=== PATIENT | male | born 1955 | race Two or more races ===

== ENCOUNTER 2023-05-31 19:56 | Inpatient (IN) | payer OTHER ==
[~2023-05-31] VITALS: Ht 188 cm; Wt 77.7 kg
[~2023-05-31 19:56] MED LIST: ATOR40TA PO; FERR325T23 PO; FINA5TAB11 PO; MECO10005 PO; METO25TA20 PO; OMEP40CA21 PO; TAMS-12 PO
[2023-05-31] MEDS ORDERED: IV NS 0.9% 500 ML BAG IV ONE (20:30)
[2023-05-31 20:46] LABS: BASOPHILS # (AUTO) 0.1 K/uL (0.0-0.2); BASOPHILS % (AUTO) 1.7 % (0.0-2.0); EOSINOPHILS % (AUTO) 0.6 % (0.0-6.0); HEMATOCRIT 24 % (39-51); HEMOGLOBIN 7.5 g/dL (13.5-17.5); LYMPHOCYTES # (AUTO) 0.6 K/uL (0.8-4.8); LYMPHOCYTES % (AUTO) 14.5 % (20.0-44.0); MEAN CORPUSCULAR HEMOGLOBIN 26 PG (26.0-33.0); MEAN CORPUSCULAR HGB CONC 31 g/dl (31.0-36.0); MEAN CORPUSCULAR VOLUME 83 fL (80-96); MONOCYTES # (AUTO) 0.5 K/uL (0.1-1.30); MONOCYTES % (AUTO) 12.1 % (2.0-12.0); NEUTROPHILS # (AUTO) 3.1 K/uL (1.8-8.9); NEUTROPHILS % (AUTO) 71.1 % (43.0-81.0); PLATELET COUNT (AUTO) 212 K/uL (150-450); RED BLOOD CELL COUNT(AUTO) 2.89 MIL/uL (4.5-6.0); RED CELL DISTRIBUTION WIDTH 19.3 % (11.5-15.0); WHITE BLOOD COUNT (AUTO) 4.4 K/uL (4.3-11.0)
[2023-05-31 20:52] LABS: CALCIUM, SERUM 8.2 mg/dL (8.5-10.1); CARBON DIOXIDE 25 mmol/L (21-32); CHLORIDE 99 mmol/L (98-107); CREATININE 0.5 mg/dL (0.6-1.3); GLUCOSE 90 mg/dL (74-106); POTASSIUM 3.6 mmol/L (3.5-5.1); SODIUM SERUM 132 mmol/L (136-145); UREA NITROGEN, BLOOD 6 mg/dL (7-18)
[2023-05-31 20:58] LABS: ALANINE AMINOTRANSFERASE < 6 U/L (12-78); ALKALINE PHOSPHATASE 115 U/L (46-116); ASPARTATE AMINOTRANSFERASE 10 U/L (15-37); BILIRUBIN,DIRECT 0.2 mg/dL (0.0-0.2); BILIRUBIN,TOTAL 0.6 mg/dL (0.2-1.0); TOTAL PROTEIN, SERUM 6.2 g/dL (6.4-8.2)
[2023-05-31 21:41] LABS: LYMPHOCYTES % (MANUAL) 12 % (16-48); MONOCYTES % (MANUAL) 19 % (0-11.0); NEUTROPHILS % (MANUAL) 69 (42-76)
[2023-05-31 21:42] LABS: OVALOCYTES 1+
[2023-05-31 22:30] VITALS: BP 105/64; TEMP 98.1; O2SAT 98
[2023-05-31] MEDS ORDERED: ZOLPIDEM TARTRATE 5 MG TABLET PO PRN (23:00)
[2023-05-31] MEDS ORDERED: IV NS 0.9% 1,000 ML IV SCH (23:00)
[2023-05-31] MEDS ORDERED: ONDANSETRON HCL/PF 4 MG/2 ML VIAL IVP PRN (23:00)
[2023-05-31] MEDS ORDERED: Z GUARD REMEDY 4 OZ OINT TP PRN (23:00)
[2023-05-31] MEDS ORDERED: ACETAMINOPHEN 325 MG TABLET PO PRN (23:00)
[2023-05-31] MEDS ORDERED: MAGNESIUM HYDROXIDE 30 ML UDC PO PRN (23:00)
[2023-05-31] MEDS ORDERED: MAG HYDROX/AL HYDROX/SIMETH 30 ML UDC PO PRN (23:00)
[2023-05-31] MEDS ORDERED: DEXTROSE 50%-WATER 50 ML DISP.SYRIN IV PRN (23:30)
[2023-06-01] VITALS (8 sets, daily range): BP systolic 116–128; BP diastolic 68–75; TEMP 96.6–99.1; O2SAT 96–100
[2023-06-01] MEDS ORDERED: GLIP5TAB13 PO (01:20)
[2023-06-01] MEDS ORDERED: NYST30CR3 TP (01:20)
[2023-06-01] MEDS ORDERED: INSU100V3 SQ (01:20)
[2023-06-01] MEDS ORDERED: OXYC-133 PO ×2 (01:20→07:57)
[2023-06-01] MEDS ORDERED: CALC-1239 PO (01:20)
[2023-06-01] MEDS ORDERED: HYDR-3972 PO (01:20)
[2023-06-01] MEDS ORDERED: LEVE500T9 PO (01:20)
[2023-06-01] MEDS ORDERED: METF-442 PO (01:20)
[2023-06-01] MEDS ORDERED: AMIN30LI27 PO (01:28)
[2023-06-01] MEDS ORDERED: EPOE1000 SQ (01:28)
[2023-06-01] MEDS ORDERED: CARB-36 PO (01:28)
[2023-06-01 04:42] LABS: APPEARANCE,URINE CLEAR (CLEAR); BILIRUBIN,URINE 1+ (NEGATIVE); BLOOD, URINE NEGATIVE Ery/uL (NEGATIVE); COLOR,URINE YELLOW (YELLOW); KETONES,URINE TRACE mg/dL (NEGATIVE); LEUKOCYTE ESTERASE ,URINE NEGATIVE (NEGATIVE); NITRITE, URINE NEGATIVE (NEGATIVE); PROTEIN,URINE TRACE mg/dl (NEGATIVE); UGLUCOSE TRACE mg/dL (NEGATIVE); UROBILINOGEN,URINE >=8.0 EU/dL (0.2)
[2023-06-01 05:14] LABS: ADD URINE CULTURE NO; BACTERIA,URINE None seen /HPF (None Seen); CALCIUM OXALATE CRYSTALS,UR Rare /HPF (None Seen); RBC,URINE 0-2 /HPF (0-2); SQUAMOUS EPITHELIAL CELL,UR Rare /HPF (None Seen); WBC,URINE NONE SEEN /HPF (0-3)
[2023-06-01 06:16] LABS: HEMATOCRIT 22 % (39-51); MEAN CORPUSCULAR HEMOGLOBIN 26 PG (26.0-33.0); MEAN CORPUSCULAR HGB CONC 31 g/dl (31.0-36.0); MEAN CORPUSCULAR VOLUME 84 fL (80-96); NEUTROPHILS % (AUTO) 70.4 % (43.0-81.0); PLATELET COUNT (AUTO) 207 K/uL (150-450); RED BLOOD CELL COUNT(AUTO) 2.57 MIL/uL (4.5-6.0); RED CELL DISTRIBUTION WIDTH 19.2 % (11.5-15.0); WHITE BLOOD COUNT (AUTO) 3.8 K/uL (4.3-11.0)
[2023-06-01 06:17] LABS: BASOPHILS % (AUTO) 0.3 % (0.0-2.0); EOSINOPHILS % (AUTO) 0.2 % (0.0-6.0); LYMPHOCYTES # (AUTO) 0.6 K/uL (0.8-4.8); LYMPHOCYTES % (AUTO) 15.3 % (20.0-44.0); MONOCYTES # (AUTO) 0.5 K/uL (0.1-1.30); MONOCYTES % (AUTO) 13.8 % (2.0-12.0); NEUTROPHILS # (AUTO) 2.7 K/uL (1.8-8.9)
[2023-06-01] MEDS: INSULIN REGULAR, HUMAN 100 UNIT/ML 3 ML VIAL SQ PRN ×3 (06:52→22:26)
[2023-06-01] MEDS: BLOOD SUGAR DIAGNOSTIC 1 EACH STRIP IN SCH ×4 (06:52→21:49)
[2023-06-01 06:58] LABS: HEMOGLOBIN 6.7 g/dL (13.5-17.5)
[2023-06-01 07:24] LABS: CALCIUM, SERUM 7.6 mg/dL (8.5-10.1); CREATININE 0.4 mg/dL (0.6-1.3); PHOSPHORUS 2.6 mg/dL (2.5-4.9); POTASSIUM 3.5 mmol/L (3.5-5.1)
[2023-06-01] MEDS ORDERED: Medication Not On Formulary EA (Omeprazole 40 MG) PO SCH (07:30)
[2023-06-01] MEDS ORDERED: POLY17PO4 PO (07:57)
[2023-06-01] MEDS ORDERED: HYDR-4303 PO (07:57)
[2023-06-01] MEDS ORDERED: FERR325T28 PO (07:57)
[2023-06-01] MEDS ORDERED: ACET325C7 PO (07:57)
[2023-06-01] MEDS ORDERED: CARB1TAB21 PO (07:57)
[2023-06-01] MEDS ORDERED: CYAN-51 PO (07:57)
[2023-06-01] MEDS ORDERED: FOLI0.8T3 PO (07:57)
[2023-06-01] MEDS ORDERED: LOPE2TAB23 PO (07:59)
[2023-06-01] MEDS: ENSURE ENLIVE CHOC 237 ML CAN PO SCH ×3 (08:00→17:00)
[2023-06-01 08:36] LABS: LYMPHOCYTES % (MANUAL) 12 % (16-48); MONOCYTES % (MANUAL) 12 % (0-11.0); MYELOCYTES % 1 % (0-0); NEUTROPHILS % (MANUAL) 75 (42-76); PLATELET ESTIMATE ADEQUATE
[2023-06-01 08:37] LABS: ANISOCYTOSIS 1+; OVALOCYTES 1+
[2023-06-01 08:51] LABS: MAGNESIUM 1.2 mg/dL (1.8-2.4)
[2023-06-01] MEDS ORDERED: FERROUS SULFATE (325 MG) 325 MG/TAB TABLET PO SCH (09:00)
[2023-06-01] MEDS: PANTOPRAZOLE 40 MG TABLET.DR PO SCH (09:00)
[2023-06-01] MEDS: METOPROLOL TARTRATE 25 MG TABLET PO SCH ×2 (09:01→17:33)
[2023-06-01] MEDS: CYANOCOBALAMIN 500 MCG TABLET PO SCH (09:01)
[2023-06-01] MEDS: FINASTERIDE (5 MG) 5 MG TABLET PO SCH (09:01)
[2023-06-01] MEDS ORDERED: MAGNESIUM OXIDE 400 MG TABLET PO ONE (09:30)
[2023-06-01] MEDS ORDERED: EPOETIN ALFA-EPBX 10,000 UNIT/ML VIAL SQ SCH (10:30)
[2023-06-01] MEDS ORDERED: POLYETHYLENE GLYCOL 3350 17 GM POWD.PACK PO PRN (10:30)
[2023-06-01] MEDS ORDERED: EPOETIN ALFA (4000 UNIT) 4,000 UNIT/ML VIAL SQ SCH (11:30)
[2023-06-01] MEDS: FERROUS SULFATE (325 MG) 325 MG/TAB TABLET PO SCH ×2 (12:40→17:32)
[2023-06-01 13:30] LABS: THYROID STIMULATING HORMONE 1.033 uIU/mL (0.358-3.74)
[2023-06-01] MEDS: MINERAL OIL/PETROL OINT 396 GM JAR TP SCH (16:04)
[2023-06-01] MEDS: IV NS 0.9% 1,000 ML IV PRN (16:38)
[2023-06-01] MEDS: ARGININE/GLUTAMINE/CALCIUM BMB 1 EACH POWD.PACK PO SCH (17:00)
[2023-06-01] MEDS ORDERED: LEVETIRACETAM (250 MG) 250 MG TABLET PO SCH ×2 (17:00→21:00)
[2023-06-01 17:14] LABS: OCCULT BLOOD STOOL NEGATIVE (NEGATIVE)
[2023-06-01] MEDS: ATORVASTATIN 40 MG TABLET PO SCH (17:34)
[2023-06-01] MEDS: LEVETIRACETAM (250 MG) 250 MG TABLET PO SCH (17:44)
[2023-06-01] MEDS: TAMSULOSIN 0.4 MG CAP.SR.24H PO SCH (21:49)
[2023-06-02] MEDS: IV NS 0.9% 1,000 ML IV PRN (06:42)
[2023-06-02] MEDS: BLOOD SUGAR DIAGNOSTIC 1 EACH STRIP IN SCH ×4 (06:55→21:22)
[2023-06-02] MEDS: INSULIN REGULAR, HUMAN 100 UNIT/ML 3 ML VIAL SQ PRN ×2 (06:58→21:29)
[2023-06-02 07:02] LABS: BASOPHILS % (AUTO) 0.1 % (0.0-2.0); EOSINOPHILS % (AUTO) 0.2 % (0.0-6.0); HEMATOCRIT 24 % (39-51); HEMOGLOBIN 7.7 g/dL (13.5-17.5); LYMPHOCYTES # (AUTO) 0.7 K/uL (0.8-4.8); MEAN CORPUSCULAR HEMOGLOBIN 27 PG (26.0-33.0); MEAN CORPUSCULAR HGB CONC 32 g/dl (31.0-36.0); MEAN CORPUSCULAR VOLUME 83 fL (80-96); MONOCYTES # (AUTO) 0.6 K/uL (0.1-1.30); MONOCYTES % (AUTO) 13.3 % (2.0-12.0); NEUTROPHILS # (AUTO) 3.1 K/uL (1.8-8.9); NEUTROPHILS % (AUTO) 70.4 % (43.0-81.0); PLATELET COUNT (AUTO) 205 K/uL (150-450); RED BLOOD CELL COUNT(AUTO) 2.87 MIL/uL (4.5-6.0); RED CELL DISTRIBUTION WIDTH 18.3 % (11.5-15.0); WHITE BLOOD COUNT (AUTO) 4.3 K/uL (4.3-11.0)
[2023-06-02 07:12] LABS: POTASSIUM 3.8 mmol/L (3.5-5.1)
[2023-06-02 07:42] LABS: BILIRUBIN,TOTAL 0.7 mg/dL (0.2-1.0); CALCIUM, SERUM 7.7 mg/dL (8.5-10.1); CREATININE 0.5 mg/dL (0.6-1.3); TOTAL PROTEIN, SERUM 5.9 g/dL (6.4-8.2)
[2023-06-02 07:44] LABS: ALBUMIN 0.9 g/dL (3.4-5.0)
[2023-06-02 08:00] VITALS: BP 127/73; TEMP 98.3; O2SAT 99
[2023-06-02] MEDS: ENSURE ENLIVE CHOC 237 ML CAN PO SCH ×3 (08:00→17:00)
[2023-06-02] MEDS: PANTOPRAZOLE 40 MG TABLET.DR PO SCH (08:39)
[2023-06-02] MEDS: CYANOCOBALAMIN 500 MCG TABLET PO SCH (08:40)
[2023-06-02] MEDS: FERROUS SULFATE (325 MG) 325 MG/TAB TABLET PO SCH ×3 (08:40→18:07)
[2023-06-02] MEDS: ZINC SULFATE 220 MG CAPSULE PO SCH (08:40)
[2023-06-02] MEDS: LEVETIRACETAM (250 MG) 250 MG TABLET PO SCH ×2 (08:40→18:08)
[2023-06-02] MEDS: MULTIVIT W/MINERALS 1 TAB TABLET PO SCH (08:40)
[2023-06-02] MEDS: CALCIUM CARB 600MG /VIT D 1 EACH TABLET PO SCH (08:40)
[2023-06-02] MEDS: ASCORBIC ACID 500 MG TABLET PO SCH (08:40)
[2023-06-02] MEDS: FINASTERIDE (5 MG) 5 MG TABLET PO SCH (08:40)
[2023-06-02] MEDS: METOPROLOL TARTRATE 25 MG TABLET PO SCH ×2 (08:41→18:08)
[2023-06-02] MEDS: FOLIC ACID 1 MG TABLET PO SCH (08:41)
[2023-06-02] MEDS ORDERED: CYANOCOBALAMIN 500 MCG TABLET PO SCH (09:00)
[2023-06-02] MEDS: ARGININE/GLUTAMINE/CALCIUM BMB 1 EACH POWD.PACK PO SCH ×3 (09:29→18:07)
[2023-06-02] MEDS: PROSTAT (PYXIS) 30 ML UDC PO SCH (09:32)
[2023-06-02] MEDS: MINERAL OIL/PETROL OINT 396 GM JAR TP SCH (09:57)
[2023-06-02] MEDS ORDERED: ALPRAZOLAM 0.25 MG TABLET PO PRN (12:30)
[2023-06-02] MEDS: CYANOCOBALAMIN 1,000 MCG/ML VIAL IM ONE ×2 (14:00→18:09)
[2023-06-02] MEDS: EPOETIN ALFA-EPBX 4,000 UNIT/ML VIAL SQ SCH (15:26)
[2023-06-02 16:00] VITALS: BP 117/72; TEMP 99.9; O2SAT 98
[2023-06-02] MEDS: ATORVASTATIN 40 MG TABLET PO SCH (18:07)
[2023-06-02] MEDS: MIRTAZAPINE 15 MG TABLET PO SCH (21:24)
[2023-06-02] MEDS: TAMSULOSIN 0.4 MG CAP.SR.24H PO SCH (21:24)
[2023-06-03 01:07] LABS: FOLIC ACID 9.6 ng/mL (>3.0)
[2023-06-03] MEDS: IV NS 0.9% 1,000 ML IV PRN (05:17)
[2023-06-03] MEDS: INSULIN REGULAR, HUMAN 100 UNIT/ML 3 ML VIAL SQ PRN ×3 (07:04→21:58)
[2023-06-03] MEDS: BLOOD SUGAR DIAGNOSTIC 1 EACH STRIP IN SCH ×4 (07:04→22:01)
[2023-06-03 07:38] LABS: BASOPHILS % (AUTO) 0.2 % (0.0-2.0); EOSINOPHILS % (AUTO) 0.4 % (0.0-6.0); HEMATOCRIT 23 % (39-51); HEMOGLOBIN 7.3 g/dL (13.5-17.5); LYMPHOCYTES # (AUTO) 0.7 K/uL (0.8-4.8); LYMPHOCYTES % (AUTO) 17.8 % (20.0-44.0); MEAN CORPUSCULAR HEMOGLOBIN 27 PG (26.0-33.0); MEAN CORPUSCULAR HGB CONC 32 g/dl (31.0-36.0); MEAN CORPUSCULAR VOLUME 84 fL (80-96); MONOCYTES # (AUTO) 0.6 K/uL (0.1-1.30); MONOCYTES % (AUTO) 14.3 % (2.0-12.0); NEUTROPHILS # (AUTO) 2.8 K/uL (1.8-8.9); NEUTROPHILS % (AUTO) 67.3 % (43.0-81.0); PLATELET COUNT (AUTO) 209 K/uL (150-450); RED BLOOD CELL COUNT(AUTO) 2.74 MIL/uL (4.5-6.0); RED CELL DISTRIBUTION WIDTH 18.5 % (11.5-15.0); WHITE BLOOD COUNT (AUTO) 4.1 K/uL (4.3-11.0)
[2023-06-03 08:00] VITALS: BP 116/67; TEMP 97.3; O2SAT 99
[2023-06-03] MEDS: ENSURE ENLIVE CHOC 237 ML CAN PO SCH ×3 (08:00→17:00)
[2023-06-03 08:05] LABS: CALCIUM, SERUM 7.4 mg/dL (8.5-10.1); CREATININE 0.5 mg/dL (0.6-1.3); POTASSIUM 3.8 mmol/L (3.5-5.1)
[2023-06-03] MEDS: CYANOCOBALAMIN 500 MCG TABLET PO SCH (08:34)
[2023-06-03] MEDS: LEVETIRACETAM (250 MG) 250 MG TABLET PO SCH ×2 (08:34→17:32)
[2023-06-03] MEDS: FERROUS SULFATE (325 MG) 325 MG/TAB TABLET PO SCH ×3 (08:34→17:32)
[2023-06-03] MEDS: MULTIVIT W/MINERALS 1 TAB TABLET PO SCH (08:34)
[2023-06-03] MEDS: ASCORBIC ACID 500 MG TABLET PO SCH (08:34)
[2023-06-03] MEDS: METOPROLOL TARTRATE 25 MG TABLET PO SCH ×2 (08:34→17:32)
[2023-06-03] MEDS: FINASTERIDE (5 MG) 5 MG TABLET PO SCH (08:34)
[2023-06-03] MEDS: ZINC SULFATE 220 MG CAPSULE PO SCH (08:34)
[2023-06-03] MEDS: PANTOPRAZOLE 40 MG TABLET.DR PO SCH (08:34)
[2023-06-03] MEDS: CALCIUM CARB 600MG /VIT D 1 EACH TABLET PO SCH (08:34)
[2023-06-03] MEDS: FOLIC ACID 1 MG TABLET PO SCH (08:34)
[2023-06-03] MEDS: MINERAL OIL/PETROL OINT 396 GM JAR TP SCH (08:42)
[2023-06-03] MEDS: ARGININE/GLUTAMINE/CALCIUM BMB 1 EACH POWD.PACK PO SCH ×2 (08:46→17:00)
[2023-06-03] MEDS: PROSTAT (PYXIS) 30 ML UDC PO SCH (08:46)
[2023-06-03 16:00] VITALS: BP 126/68; TEMP 98.1; O2SAT 99
[2023-06-03] MEDS: ATORVASTATIN 40 MG TABLET PO SCH (17:33)
[2023-06-03 20:00] VITALS: BP 119/59; TEMP 98.1; O2SAT 98
[2023-06-03] MEDS: TAMSULOSIN 0.4 MG CAP.SR.24H PO SCH (21:29)
[2023-06-03] MEDS: MIRTAZAPINE 15 MG TABLET PO SCH (21:29)
[2023-06-04 03:37] VITALS: BP 121/68; TEMP 98; O2SAT 98
[2023-06-04] MEDS: IV NS 0.9% 1,000 ML IV PRN ×2 (05:45→18:58)
[2023-06-04 06:19] LABS: BASOPHILS % (AUTO) 0.2 % (0.0-2.0); EOSINOPHILS % (AUTO) 0.4 % (0.0-6.0); HEMATOCRIT 23 % (39-51); HEMOGLOBIN 7.2 g/dL (13.5-17.5); LYMPHOCYTES # (AUTO) 0.7 K/uL (0.8-4.8); MEAN CORPUSCULAR HEMOGLOBIN 27 PG (26.0-33.0); MEAN CORPUSCULAR HGB CONC 31 g/dl (31.0-36.0); MEAN CORPUSCULAR VOLUME 84 fL (80-96); MONOCYTES # (AUTO) 0.5 K/uL (0.1-1.30); MONOCYTES % (AUTO) 11.9 % (2.0-12.0); NEUTROPHILS % (AUTO) 71.5 % (43.0-81.0); PLATELET COUNT (AUTO) 196 K/uL (150-450); RED BLOOD CELL COUNT(AUTO) 2.73 MIL/uL (4.5-6.0); WHITE BLOOD COUNT (AUTO) 4.2 K/uL (4.3-11.0)
[2023-06-04] MEDS: BLOOD SUGAR DIAGNOSTIC 1 EACH STRIP IN SCH ×4 (06:32→21:55)
[2023-06-04 06:44] LABS: CALCIUM, SERUM 7.1 mg/dL (8.5-10.1); CREATININE 0.4 mg/dL (0.6-1.3); POTASSIUM 3.4 mmol/L (3.5-5.1)
[2023-06-04] MEDS: PANTOPRAZOLE 40 MG TABLET.DR PO SCH (07:33)
[2023-06-04] MEDS: ENSURE ENLIVE CHOC 237 ML CAN PO SCH ×3 (07:33→17:00)
[2023-06-04] MEDS: PROSTAT (PYXIS) 30 ML UDC PO SCH (09:00)
[2023-06-04] MEDS: ARGININE/GLUTAMINE/CALCIUM BMB 1 EACH POWD.PACK PO SCH ×2 (09:00→17:00)
[2023-06-04] MEDS: LEVETIRACETAM (250 MG) 250 MG TABLET PO SCH ×2 (09:19→17:01)
[2023-06-04] MEDS: FOLIC ACID 1 MG TABLET PO SCH (09:19)
[2023-06-04] MEDS: MULTIVIT W/MINERALS 1 TAB TABLET PO SCH (09:20)
[2023-06-04] MEDS: ASCORBIC ACID 500 MG TABLET PO SCH (09:20)
[2023-06-04] MEDS: CYANOCOBALAMIN 500 MCG TABLET PO SCH (09:20)
[2023-06-04] MEDS: FINASTERIDE (5 MG) 5 MG TABLET PO SCH (09:20)
[2023-06-04] MEDS: METOPROLOL TARTRATE 25 MG TABLET PO SCH ×2 (09:20→17:06)
[2023-06-04] MEDS: FERROUS SULFATE (325 MG) 325 MG/TAB TABLET PO SCH ×3 (09:20→17:02)
[2023-06-04] MEDS: CALCIUM CARB 600MG /VIT D 1 EACH TABLET PO SCH (09:20)
[2023-06-04] MEDS: ZINC SULFATE 220 MG CAPSULE PO SCH (09:20)
[2023-06-04] MEDS: MINERAL OIL/PETROL OINT 396 GM JAR TP SCH (09:21)
[2023-06-04] MEDS ORDERED: POTASSIUM CHLORIDE 20 MEQ POWDER PACKET PO ONE (12:00)
[2023-06-04] MEDS: INSULIN REGULAR, HUMAN 100 UNIT/ML 3 ML VIAL SQ PRN (12:12)
[2023-06-04] MEDS: ATORVASTATIN 40 MG TABLET PO SCH (17:35)
[2023-06-04 20:00] VITALS: BP 121/66; TEMP 97.9; O2SAT 99
[2023-06-04] MEDS: MIRTAZAPINE 15 MG TABLET PO SCH (21:50)
[2023-06-04] MEDS: TAMSULOSIN 0.4 MG CAP.SR.24H PO SCH (21:50)
[2023-06-05] MEDS: IV NS 0.9% 1,000 ML IV PRN (05:13)
[2023-06-05] MEDS: BLOOD SUGAR DIAGNOSTIC 1 EACH STRIP IN SCH ×3 (06:28→17:22)
[2023-06-05 06:54] LABS: CALCIUM, SERUM 7.8 mg/dL (8.5-10.1); CREATININE 0.4 mg/dL (0.6-1.3); POTASSIUM 3.9 mmol/L (3.5-5.1)
[2023-06-05 07:07] LABS: BASOPHILS % (AUTO) 0.4 % (0.0-2.0); EOSINOPHILS % (AUTO) 0.4 % (0.0-6.0); HEMATOCRIT 25 % (39-51); HEMOGLOBIN 7.8 g/dL (13.5-17.5); LYMPHOCYTES # (AUTO) 0.7 K/uL (0.8-4.8); LYMPHOCYTES % (AUTO) 17.7 % (20.0-44.0); MEAN CORPUSCULAR HEMOGLOBIN 27 PG (26.0-33.0); MEAN CORPUSCULAR HGB CONC 31 g/dl (31.0-36.0); MEAN CORPUSCULAR VOLUME 86 fL (80-96); MONOCYTES # (AUTO) 0.4 K/uL (0.1-1.30); MONOCYTES % (AUTO) 9.7 % (2.0-12.0); NEUTROPHILS # (AUTO) 2.9 K/uL (1.8-8.9); NEUTROPHILS % (AUTO) 71.8 % (43.0-81.0); PLATELET COUNT (AUTO) 204 K/uL (150-450); RED BLOOD CELL COUNT(AUTO) 2.95 MIL/uL (4.5-6.0); RED CELL DISTRIBUTION WIDTH 18.7 % (11.5-15.0); WHITE BLOOD COUNT (AUTO) 4.1 K/uL (4.3-11.0)
[2023-06-05] MEDS: ENSURE ENLIVE CHOC 237 ML CAN PO SCH ×2 (08:17→12:27)
[2023-06-05] MEDS: PANTOPRAZOLE 40 MG TABLET.DR PO SCH (08:17)
[2023-06-05 08:26] VITALS: BP 104/72; TEMP 98.1; O2SAT 99
[2023-06-05] MEDS: CALCIUM CARB 600MG /VIT D 1 EACH TABLET PO SCH (09:13)
[2023-06-05] MEDS: FERROUS SULFATE (325 MG) 325 MG/TAB TABLET PO SCH ×3 (09:13→17:00)
[2023-06-05] MEDS: MULTIVIT W/MINERALS 1 TAB TABLET PO SCH (09:13)
[2023-06-05] MEDS: LEVETIRACETAM (250 MG) 250 MG TABLET PO SCH ×2 (09:14→17:00)
[2023-06-05] MEDS: FOLIC ACID 1 MG TABLET PO SCH (09:14)
[2023-06-05] MEDS: ASCORBIC ACID 500 MG TABLET PO SCH (09:14)
[2023-06-05] MEDS: CYANOCOBALAMIN 500 MCG TABLET PO SCH (09:14)
[2023-06-05] MEDS: ZINC SULFATE 220 MG CAPSULE PO SCH (09:14)
[2023-06-05] MEDS: FINASTERIDE (5 MG) 5 MG TABLET PO SCH (09:16)
[2023-06-05] MEDS: METOPROLOL TARTRATE 25 MG TABLET PO SCH ×2 (09:16→17:00)
[2023-06-05] MEDS: ARGININE/GLUTAMINE/CALCIUM BMB 1 EACH POWD.PACK PO SCH ×2 (09:16→17:00)
[2023-06-05] MEDS: MINERAL OIL/PETROL OINT 396 GM JAR TP SCH (10:51)
[2023-06-05] MEDS: PROSTAT (PYXIS) 30 ML UDC PO SCH (10:51)
[2023-06-05] MEDS: EPOETIN ALFA-EPBX 4,000 UNIT/ML VIAL SQ SCH ×2 (15:00→15:29)
[2023-06-05 16:11] VITALS: BP 131/73; TEMP 98.5; O2SAT 98
[2023-06-05] MEDS ORDERED: GLUCERNA SHAKE 237 ML CAN PO SCH (17:00)
[2023-06-05] MEDS: ATORVASTATIN 40 MG TABLET PO SCH (17:22)
== END 2023-06-05 18:37 | DRG 640 ==
LOC: ER 19:57 → TELE 22:06 → MED 23:18
PROVIDERS: ADMIT Nurse Practitioner Acute Care; ATTEND Nurse Practitioner Acute Care
PROC: 4A00X4Z Measurement of Central Nervous Electrical Activity, External Approach (ICD-10-PCS; principal; 2023-06-01)
PROC: 30233N1 Transfusion of Nonautologous Red Blood Cells into Peripheral Vein, Percutaneous Approach (ICD-10-PCS; 2023-06-01)
DX: E87.1 Hypo-osmolality and hyponatremia (principal); E43 Unspecified severe protein-calorie malnutrition; C48.0 Malignant neoplasm of retroperitoneum; D68.9 Coagulation defect, unspecified; G40.909 Epilepsy, unspecified, not intractable, without status epilepticus; K21.9 Gastro-esophageal reflux disease without esophagitis; E86.1 Hypovolemia; D63.8 Anemia in other chronic diseases classified elsewhere; I10 Essential (primary) hypertension; E78.5 Hyperlipidemia, unspecified; D72.821 Monocytosis (symptomatic); E11.9 Type 2 diabetes mellitus without complications; E53.8 Deficiency of other specified B group vitamins; E88.09 Other disorders of plasma-protein metabolism, not elsewhere classified; Z92.3 Personal history of irradiation; G62.9 Polyneuropathy, unspecified; N40.0 Benign prostatic hyperplasia without lower urinary tract symptoms; Z66 Do not resuscitate; Z79.899 Other long term (current) drug therapy; Z85.028 Personal history of other malignant neoplasm of stomach; Z68.20 Body mass index [BMI] 20.0-20.9, adult
CPT/HCPCS: 36415; 71045-TC; 80048-TC; 80053-TC; 80061-TC; 80076-TC; 81001; 82272-TC; 82607-TC; 82728-TC; 82962-TC; 83540-TC; 83735-TC; 83921; 84100-TC; 84439-TC; 84443-TC; 84484-TC; 85025-TC; 86850-TC; 87081-TC; 95819-TC; 97110-TC; 97112-TC; 97530-TC; A4223; G0378; J0885; J1815; J3420; J7030; J7040; P9016